=== PATIENT | male | born 1955 | race Caucasian/White ===

== ENCOUNTER 2017-11-11 23:11 | Emergency (ER) | payer BC ==
[2017-11-12] MEDS ORDERED: HYDROCODONE/APAP 5/325 MG TAB ONE (00:59)
[2017-11-12] MEDS ORDERED: FENTANYL CITR 100 MCG/2 ML ONE (01:05)
[2017-11-12 01:14] LABS: Absolute Lymphocytes (CBC) 0.6 K/uL (0.7-4.9); Absolute Monocytes 0.8 K/uL (0.1-1.3); Basophils % 0.4 % (0-1.3); Eosinophils % 4.7 % (0-4.4); Hematocrit 30.2 % (39.6-49.0); Lymphocytes % 13.3 % (15.3-44.8); MCH 32.8 pg (27.0-35.0); MCV 95.3 fL (80-100); MPV 9.6 fL (7.6-11.3); Monocytes % 16.8 % (3.3-12.3); Protime INR 1.07; RBC Red Blood Cell Count 3.17 M/uL (4.33-5.43)
[2017-11-12 01:25] LABS: Albumin 3.1 g/dL (3.4-5.0); Bilirubin Direct 0.6 mg/dL (0-0.2); Bilirubin Total 1.7 mg/dL (0.2-1.0); Magnesium 1.8 mg/dL (1.8-2.4); Potassium 3.9 mmol/L (3.5-5.1); Protein, Total 6.6 g/dL (6.4-8.2)
--- NOTE | 2017-11-12 02:39 | EDPHYS ---
Physician Documentation [facility] Name: Felipe Lorenzo Age: 62 yrs Sex: Male : 1955 Arrival Date: 11/11/2017 Time: 23:15 Bed 19 Private MD: Bismark Joyce T ED Physician Santos Ponce HPI: 11/12 22:02 This 62 yrs old Male presents to ER via Wheelchair with complaints of wa Possible Blood Clot. 22:02 The patient presents with swelling, tenderness, c/o R ankle swelling. s/p R knee wa replacement on 11/05. on lovenox. h/o DVT. states R leg hurts but want to make sure no DVT due to ankle swelling. The complaints affect the right ankle and right leg. Context: as noted above. Onset: The symptoms/episode began/occurred 3 day(s) ago. Modifying factors: The symptoms are alleviated by nothing. the symptoms are aggravated by movement, weight bearing, bending knee. Associated signs and symptoms: Pertinent positives: calf tenderness, swelling, of the left leg. Treatment prior to arrival includes: no previous treatment. Severity of symptoms: At their worst the symptoms were moderate, in the emergency department the symptoms are unchanged. The patient has experienced a previous episode. The patient has been recently seen by a physician: recent knee replacement by Weston Taylor. Historical: - Allergies: 11/11 23:39 Cipro; bb - Home Meds: 23:39 Lovenox Sub-Q every 12 hours [Active]; omeprazole 40 mg Oral cpDR 1 cap once daily bb [Active]; carvedilol 12.5 mg oral tab 1 tab 2 times per day [Active]; hydrocodone-acetaminophen 10-325 mg Oral tab 1 tab every 4 hours [Active]; meloxicam 15 mg oral tab 1 tab once daily [Active]; amlodipine 5 mg tab 1 tab once daily [Active]; ramipril 10 mg Oral cap 1 cap once daily [Active]; atorvastatin 40 mg oral tab 1 tab once daily [Active]; hydrochlorothiazide 12.5 mg Oral cap 1 cap once daily [Active]; CoQ-10 oral 120 mg daily oral [Active]; - PMHx: 23:39 Hypertension; Hyperlipidemia; GERD; bb - PSHx: 23:39 CABG; Carotid surgery; Knee surgery; Tonsillectomy; Left hand surgery; bb - Immunization history:: Adult Immunizations not up to date. - Social history:: Smoking status: Patient/guardian denies using tobacco, Patient uses alcohol, occasionally. Patient/guardian denies using street drugs. - Ebola Screening: : No symptoms or risks identified at this time. - Family history:: not pertinent. - Hospitalizations: : No recent hospitalization is reported. ROS: 11/12 22:07 Constitutional: Negative for fever, chills, and weight loss, Eyes: Negative for injury, wa pain, redness, and discharge, ENT: Negative for injury, pain, and discharge, Neck: Negative for injury, pain, and swelling, Cardiovascular: Negative for chest pain, palpitations, and edema, Respiratory: Negative for shortness of breath, cough, wheezing, and pleuritic chest pain, Abdomen/GI: Negative for abdominal pain, nausea, vomiting, diarrhea, and constipation, Back: Negative for injury and pain, : Negative for injury, bleeding, discharge, and swelling, Skin: Negative for injury, rash, and discoloration, Neuro: Negative for headache, weakness, numbness, tingling, and seizure. MS/extremity: Positive for pain, swelling, tenderness, of the right leg. All other systems are negative. Exam: 22:08 Constitutional: This is a well developed, well nourished patient who is awake, alert, wa and in no acute distress. Head/Face: Normocephalic, atraumatic. Eyes: Pupils equal round and reactive to light, extra-ocular motions intact. Lids and lashes normal. Conjunctiva and sclera are non-icteric and not injected. Cornea within normal limits. Periorbital areas with no swelling, redness, or edema. ENT: Nares patent. No nasal discharge, no septal abnormalities noted. Tympanic membranes are normal and external auditory canals are clear. Oropharynx with no redness, swelling, or masses, exudates, or evidence of obstruction, uvula midline. Mucous membranes moist. Neck: Trachea midline, no thyromegaly or masses palpated, and no cervical lymphadenopathy. Supple, full range of motion without nuchal rigidity, or vertebral point tenderness. No Meningismus. Chest/axilla: Normal chest wall appearance and motion. Nontender with no deformity. No lesions are appreciated. Cardiovascular: Regular rate and rhythm with a normal S1 and S2. No gallops, murmurs, or rubs. Normal PMI, no JVD. No pulse deficits. Respiratory: Lungs have equal breath sounds bilaterally, clear to auscultation and percussion. No rales, rhonchi or wheezes noted. No increased work of breathing, no retractions or nasal flaring. Abdomen/GI: Soft, non-tender, with normal bowel sounds. No distension or tympany. No guarding or rebound. No evidence of tenderness throughout. Back: No spinal tenderness. No costovertebral tenderness. Full range of motion. Neuro: Awake and alert, GCS 15, oriented to person, place, time, and situation. Cranial nerves II-XII grossly intact. Motor strength 5/5 in all extremities. Sensory grossly intact. Cerebellar exam normal. Normal gait. Psych: Awake, alert, with orientation to person, place and time. Behavior, mood, and affect are within normal limits. 22:08 Skin: R leg noted with diffuse redness and some areas of ecchymosis. 1+ pitting noted at the swollen ankles. diffusely tender, entire R leg. noted post-surgical dressing at the anterior aspect of R knee. DP pulses intact and strong however. Vital Signs: 11/11 23:39 BP 140 / 79; Pulse 75; Resp 16 S; Temp 98.5(O); Pulse Ox 97% on R/A; Weight 124.74 kg bb (R); Height 6 ft. 0 in. (182.88 cm) (R); Pain 8/10; 11/12 00:19 BP 126 / 79; Pulse 80; Resp 18; Pulse Ox 98% on R/A; ea 00:50 BP 121 / 76; Pulse 72; Resp 18; Pulse Ox 96% on R/A; Pain 8/10; aa1 01:15 BP 140 / 77; Pulse 72; Resp 18; Pulse Ox 96% on R/A; aa1 02:24 BP 112 / 58; Pulse 71; Resp 18; Pulse Ox 96% on R/A; aa1 03:06 BP 130 / 68; Pulse 70; Resp 18; Temp 97.8(O); Pulse Ox 98% on R/A; ea 11/11 23:39 Body Mass Index 37.30 (124.74 kg, 182.88 cm) bb MDM: 11/11 23:48 Patient medically screened. wa 11/12 22:10 Differential diagnosis: diffuse bruising possibly post-surgical. will r/o new DVT. pt wa on lovenox already. Data reviewed: vital signs, nurses notes. 22:10 Test interpretation: by ED physician or midlevel provider: labs within nml limits. R doppler: old DVT noted. possible new clot in the distal tibial. will continue blood thinners. close f/u with his doctor. Response to treatment: the patient's symptoms have mildly improved after treatment. 11/12 00:28 Order name: LFT's; Complete Time: 02: me 11/12 00:28 Order name: Basic Metabolic Panel; Complete Time: :11/12 00:28 Order name: CBC with Diff me 11/12 00:28 Order name: Magnesium; Complete Time: : me 11/12 00:28 Order name: PT-INR; Complete Time: : me 11/12 01:23 Order name: Manual Differential [facility] 11/12 00:29 Order name: Extremity Venous Uni Ltd [facility] Administered Medications: 00:58 Drug: [place] 5 mg-325 mg 1 tabs Route: PO; ea 02:00 Follow up: Response: No adverse reaction; Pain is decreased ea 01:04 Drug: fentaNYL (PF) 100 mcg Route: IVP; Site: left antecubital; ea 01:30 Follow up: Response: No adverse reaction; Pain is decreased ea Disposition: 11/12/17 02:38 Discharged to Home. Impression: Right Leg Pain post surgery, Right Leg swelling, Acute embolism and thrombosis of deep veins of lower extremity. - Condition is Stable. - Discharge Instructions: Deep Vein Thrombosis. - Medication Reconciliation Form, Thank You Letter, Antibiotic Education, Prescription Opioid Use form. - Follow up: Larry Ontiveros MD; When: Tomorrow; Reason: Recheck today's complaints. - Problem is new. - Symptoms have improved. - Notes: continue your blood thinners. follow up with your doctor for further evaluation tomorrow per your appointment. you may elevate the leg to attempt to reduce some of the ankle swelling Signatures: Dispatcher [employer] EDKendra Damon RN RN bb Antunez, Elena, RN RN ea Appiah, William, MD MD me Corrections: (The following items were deleted from the chart) 03:07 02:38 11/12/2017 02:38 Discharged to Home. Impression: Right Leg Pain post surgery; ea Right Leg swelling; Acute embolism and thrombosis of deep veins of lower extremity. Condition is Stable. Forms are Medication Reconciliation Form, Thank You Letter, Antibiotic Education, Prescription Opioid Use. Follow up: Larry Ontiveros; When: Tomorrow; Reason: Recheck today's complaints. Problem is new. Symptoms have improved. wa
--- NOTE | 2017-11-12 02:39 | ER ---
Nurse's Notes [facility] Name: Felipe Lorenzo Age: 62 yrs Sex: Male : 1955 Arrival Date: 11/11/2017 Time: 23:15 Bed 19 Private MD: Bismark Joyce T Diagnosis: Right Leg Pain post surgery;Right Leg swelling;Acute embolism and thrombosis of deep veins of lower extremity Presentation: 11/11 23:34 Presenting complaint: Patient states: he had right knee replacement on 11/05 and was bb doing well until today when his right ankle started hurting it is very painful and he is now having difficulty putting weight on it and it is swollen. Transition of care: patient was not received from another setting of care. Onset of symptoms was November 11, 2017. Risk Assessment: Do you want to hurt yourself or someone else? Patient reports no desire to harm self or others. Initial Sepsis Screen: Does the patient meet any 2 criteria? No. Patient's initial sepsis screen is negative. Does the patient have a suspected source of infection? No. Patient's initial sepsis screen is negative. Care prior to arrival: None. 23:34 Method Of Arrival: Wheelchair bb 23:34 Acuity: TED 2 bb Historical: - Allergies: 23:39 Cipro; bb - Home Meds: 23:39 Lovenox Sub-Q every 12 hours [Active]; omeprazole 40 mg Oral cpDR 1 cap once daily bb [Active]; carvedilol 12.5 mg oral tab 1 tab 2 times per day [Active]; hydrocodone-acetaminophen 10-325 mg Oral tab 1 tab every 4 hours [Active]; meloxicam 15 mg oral tab 1 tab once daily [Active]; amlodipine 5 mg tab 1 tab once daily [Active]; ramipril 10 mg Oral cap 1 cap once daily [Active]; atorvastatin 40 mg oral tab 1 tab once daily [Active]; hydrochlorothiazide 12.5 mg Oral cap 1 cap once daily [Active]; CoQ-10 oral 120 mg daily oral [Active]; - PMHx: 23:39 Hypertension; Hyperlipidemia; GERD; bb - PSHx: 23:39 CABG; Carotid surgery; Knee surgery; Tonsillectomy; Left hand surgery; bb - Immunization history:: Adult Immunizations not up to date. - Social history:: Smoking status: Patient/guardian denies using tobacco, Patient uses alcohol, occasionally. Patient/guardian denies using street drugs. - Ebola Screening: : No symptoms or risks identified at this time. - Family history:: not pertinent. - Hospitalizations: : No recent hospitalization is reported. Screenin/31 00:18 Abuse screen: Denies threats or abuse. Nutritional screening: No deficits noted. ea Tuberculosis screening: No symptoms or risk factors identified. Fall Risk None identified. Assessment: 00:16 General: Appears in no apparent distress. Behavior is calm, cooperative, appropriate ea for age. Pain: Complains of pain in right leg Pain radiates to right leg Pain currently is 8 out of 10 on a pain scale. Quality of pain is described as aching, Is intermittent. Pain:. Neuro: Level of Consciousness is awake, alert, obeys commands, Oriented to person, place, time, situation. Cardiovascular: Patient's skin is warm and dry. Respiratory: Airway is patent Respiratory effort is even, unlabored, Respiratory pattern is regular, symmetrical. GI: No signs and/or symptoms were reported involving the gastrointestinal system. : No signs and/or symptoms were reported regarding the genitourinary system. EENT: No signs and/or symptoms were reported regarding the EENT system. Derm: Skin is pink, warm \T\ dry. swelling noted to right lower extremity, surgical incision to right knee. Dressing dry and intact. 01:16 Reassessment: Patient and/or family updated on plan of care and expected duration. Pain ea level reassessed. Patient is alert, oriented x 3, equal unlabored respirations, skin warm/dry/pink. fire control technician b at bedside. 01:50 Reassessment: Patient and/or family updated on plan of care and expected duration. Pain ea level reassessed. Patient is alert, oriented x 3, equal unlabored respirations, skin warm/dry/pink. Family at bedside. 02:18 Reassessment: Patient and/or family updated on plan of care and expected duration. Pain ea level reassessed. Patient is alert, oriented x 3, equal unlabored respirations, skin warm/dry/pink. pt reports pain has decreased Patient states feeling better. 03:04 Reassessment: Patient and/or family updated on plan of care and expected duration. Pain ea level reassessed. Patient is alert, oriented x 3, equal unlabored respirations, skin warm/dry/pink. Discharge instruction given to patient, verbalized the understanding of instruction. Vital Signs: 11/11 23:39 BP 140 / 79; Pulse 75; Resp 16 S; Temp 98.5(O); Pulse Ox 97% on R/A; Weight 124.74 kg bb (R); Height 6 ft. 0 in. (182.88 cm) (R); Pain 8/10; 11/12 00:19 BP 126 / 79; Pulse 80; Resp 18; Pulse Ox 98% on R/A; ea 00:50 BP 121 / 76; Pulse 72; Resp 18; Pulse Ox 96% on R/A; Pain 8/10; aa1 01:15 BP 140 / 77; Pulse 72; Resp 18; Pulse Ox 96% on R/A; aa1 02:24 BP 112 / 58; Pulse 71; Resp 18; Pulse Ox 96% on R/A; aa1 03:06 BP 130 / 68; Pulse 70; Resp 18; Temp 97.8(O); Pulse Ox 98% on R/A; ea 11/11 23:39 Body Mass Index 37.30 (124.74 kg, 182.88 cm) ED Course: 11/11 23:15 Patient arrived in ED. ds1 23:15 Bismark Joyce MD is Private Physician. ds1 23:35 Triage completed. bb 23:39 Arm band placed on Patient placed in an exam room, on a stretcher, on pulse oximetry. bb Family accompanied patient. 23:48 Santos Ponce MD is Attending Physician. wa 11/12 00:16 Jordana Sheikh, RN is Primary Nurse. ea 00:18 Patient has correct armband on for positive identification. Bed in low position. Call ea light in reach. Side rails up X 1. 00:40 Initial lab(s) drawn, by me, sent to lab. Inserted saline lock: 20 gauge in left aa1 antecubital area, using aseptic technique. Blood collected. 00:51 Pillow given. Elevated right left leg. aa1 01:19 Extremity Venous Uni Ltd US In Process Unspecified. EDMS 02:36 Larry Ontiveros MD is Referral Physician. wa 03:05 No provider procedures requiring assistance completed. IV discontinued, intact, ea bleeding controlled, No redness/swelling at site. Pressure dressing applied. Administered Medications: 00:58 Drug: [place] 5 mg-325 mg 1 tabs Route: PO; ea 02:00 Follow up: Response: No adverse reaction; Pain is decreased ea 01:04 Drug: fentaNYL (PF) 100 mcg Route: IVP; Site: left antecubital; ea 01:30 Follow up: Response: No adverse reaction; Pain is decreased junior Outcome: 02:38 Discharge ordered by . spenser 03:05 Discharged to home ambulatory, with family. junior 03:05 Condition: improved 03:05 Discharge instructions given to patient, family, Instructed on discharge instructions, follow up and referral plans. Demonstrated understanding of instructions, follow-up care. 03:07 Patient left the ED. ea Signatures: Dispatcher [employer] EDVeronika Dior RN RN aa1 Poonam Polanco ds1 Kendra Nix RN RN bb Antunez, Elena, RN RN ea Appiah, William, MD MD wa Corrections: (The following items were deleted from the chart) 02:18 00:16 Derm: Skin is pink, warm \T\ dry. junior pacheco
[2017-11-12 03:10] LABS: Blood Morphology Comment NOT SEEN (NOT SEEN); Platelet Estimate ADEQ
--- NOTE | 2017-11-12 08:32 | RAD REPORT ---
EXAM DESCRIPTION: VAS - Extremity Venous Uni Ltd - 11/12/2017 1:23 am CLINICAL HISTORY: PAIN Leg swelling and edema. COMPARISON: Extremity Venous Uni Ltd dated 01/14/2017 FINDINGS: Right lower extremity venous system was interrogated with Doppler technique. Acute DVT fin dings are suspected distal femoral vein. Linear chronic DVT findings suspect in the popliteal vein. IMPRESSION: Acute DVT likely present distal right femoral vein. This finding appears superimposed on chronic DVT
== END 2017-11-12 03:07 | disposition home or self-care (01) ==
LOC: ER 23:11
DX: I82.4Z1 Acute embolism and thrombosis of unspecified deep veins of right distal lower extremity (principal); M79.89 Other specified soft tissue disorders; I10 Essential (primary) hypertension; E78.5 Hyperlipidemia, unspecified; Z95.1 Presence of aortocoronary bypass graft; Z88.1 Allergy status to other antibiotic agents
CPT/HCPCS: 36415; 80048; 80076; 83735; 85025; 85610; 93971; 96374; 99284; J3010

== ENCOUNTER 2017-11-29 11:08 | Emergency (ER) | payer BC ==
[2017-11-29] MEDS ORDERED: ONDANSETRON 4 MG/2 ML VIAL ONE (11:44)
[2017-11-29] MEDS ORDERED: MORPHINE 4 MG/ML SYR ONE (11:44)
[2017-11-29 12:07] LABS: Protime INR 1.44
[2017-11-29 12:19] LABS: Absolute Lymphocytes (CBC) 0.9 K/uL (0.7-4.9); Absolute Monocytes 0.9 K/uL (0.1-1.3); Absolute Neutrophil 3.6 K/uL (1.8-8.0); Basophils % 0.8 % (0-1.3); Bilirubin Direct 0.4 mg/dL (0-0.2); Bilirubin Total 1.4 mg/dL (0.2-1.0); Eosinophils % 2.6 % (0-4.4); Hematocrit 38.8 % (39.6-49.0); Lymphocytes % 16.1 % (15.3-44.8); MCH 31.6 pg (27.0-35.0); MCV 93.8 fL (80-100); Monocytes % 15.6 % (3.3-12.3); Protein, Total 8.3 g/dL (6.4-8.2); RBC Red Blood Cell Count 4.13 M/uL (4.33-5.43)
[2017-11-29 12:19] LABS: Urine Blood TRACE (NEG); Urine Glucose NEGATIVE (NEG); Urine Protein NEGATIVE (NEG)
--- NOTE | 2017-11-29 12:43 | RAD REPORT ---
EXAM DESCRIPTION: VAS - Extremity Venous Uni Ltd - 11/29/2017 12:00 pm CLINICAL HISTORY: swelling, pain Leg swelling and edema. COMPARISON: Extremity Venous Uni Ltd dated 11/12/2017 FINDINGS: Right lower extremity venous system was interrogated with Doppler technique. Partially rec annulized DVT is seen in the distal right femoral vein and right popliteal vein. No new or progressiv e DVT is seen. IMPRESSION: Partially recannulized DVT is seen in the right femoral vein and right popliteal vein. N o new or progressive DVT is present.
[2017-11-29] MEDS ORDERED: FENTANYL CITR 100 MCG/2 ML ONE (12:44)
--- NOTE | 2017-11-29 12:47 | RAD REPORT ---
EXAM DESCRIPTION: VAS - Lower Extremity Artery Uni Ltd - 11/29/2017 12:03 pm CLINICAL HISTORY: PAIN COMPARISON: None FINDINGS: Grayscale, color and spectral Doppler was performed of the right lower extremity arterial system. A biphasic and monophasic waveforms are seen throughout the right lower extremity arterial system. Pe ak systolic velocity measurements are within normal limits. No stenosis or occlusion is identified. IMPRESSION: A diffuse pattern of biphasic to monophasic waveforms throughout the right lower extremi ty arterial system without high-grade stenosis or occlusion visualized. The findings may indicate the presence of inflow stenosis.
--- NOTE | 2017-11-29 12:52 | RAD REPORT ---
EXAM DESCRIPTION: RAD - Knee Right 3 View - 11/29/2017 12:23 pm CLINICAL HISTORY: PAIN COMPARISON: Knee Right 3 View dated 01/14/2017 FINDINGS: Soft tissue swelling is seen about the knee. A small suprapatellar joint effusion is prese nt. Total knee arthroplasty changes are present. No hardware loosening is seen. Vascular calcificatio ns are noted. IMPRESSION: Prominent soft tissue swelling about the knee.
--- NOTE | 2017-11-29 15:42 | EDPHYS ---
Physician Documentation [facility] Name: Felipe Lorenzo Age: 62 yrs Sex: Male : 1955 Arrival Date: 11/29/2017 Time: 11:10 Bed 18 Private MD: Bismark Joyce T ED Physician Ceasar Lewis HPI: 11/29 11:34 This 62 yrs old Male presents to ER via Wheelchair with complaints of Blood jmm Clot. 11:34 The patient presents with pain, that is acute, swelling. The complaints affect the jmm medial aspect of right thigh, medial aspect of right knee, medial aspect of right calf, right ankle, medial aspect of right foot, right quadriceps, right knee, right beltran, anterior aspect of right ankle and dorsum of right foot. Onset: The symptoms/episode began/occurred gradually. This is a 62 year old male with a history of HLP, HTN that presents to the ED with right lower extremity pain worsening over the past 2 days. Patient states swelling has decreased since he began taking eliquis. Patient denies chest pain or shortness of breath. Patient is s/p knee replacement performed by Dr. Lamb on November 052017. Patient states he developed a DVT which is currently taking eliquis. Patient also states he has a subjective fever with chills at night which he states is "knocked down" with his tylenol. . Historical: - Allergies: 11:15 Cipro; la1 - PMHx: 11:15 GERD; Hyperlipidemia; Hypertension; la1 - Immunization history:: Adult Immunizations up to date. - Social history:: Smoking status: Patient/guardian denies using tobacco, the patient reports quitting approximately 7 years ago. - Ebola Screening: : No symptoms or risks identified at this time. ROS: 11:34 Cardiovascular: Negative for chest pain, palpitations, and edema, Respiratory: Negative jmm for shortness of breath, cough, wheezing, and pleuritic chest pain. 11:34 Constitutional: Positive for chills. 11:34 Cardiovascular: Negative for chest pain. 11:34 Respiratory: Negative for shortness of breath. 11:34 MS/extremity: Positive for pain. 11:34 All other systems are negative. Exam: 11:34 Constitutional: This is a well developed, well nourished patient who is awake, alert, jmm and in no acute distress. Head/Face: atraumatic. Chest/axilla: Normal chest wall appearance and motion. Cardiovascular: Regular rate and rhythm. No edema appreciated Respiratory: Normal respirations, no respiratory distress appreciated 11:34 Cardiovascular: Rate: normal, Rhythm: regular. 11:34 Respiratory: the patient does not display signs of respiratory distress, Respirations: normal. 11:34 Musculoskeletal/extremity: mild swelling noted to the right lower leg, FROM is appreciated to the right knee, compartments are soft, NVI. 11:34 Skin: mild erythema noted to the right lower leg. 11:34 Neuro: Orientation: is normal, Mentation: is normal, Memory: is normal. 11:34 Psych: Behavior/mood is pleasant, cooperative. Vital Signs: 11:15 BP 156 / 85; Pulse 85; Resp 16; Temp 97.6; Pulse Ox 97% on R/A; Weight 129.27 kg; la1 Height 6 ft. 1 in. (185.42 cm); 12:30 BP 138 / 71; Pulse 81; Resp 18; Pulse Ox 98% on R/A; Pain 9/10; em 13:25 BP 129 / 82; Pulse 79; Resp 17; Pulse Ox 96% on R/A; mh5 14:38 BP 132 / 85; Pulse 76; Resp 18; Pulse Ox 100% on R/A; em 15:30 BP 122 / 67; Pulse 80; Resp 16; Pulse Ox 98% on R/A; Pain 6/10; em 16:22 BP 126 / 68; Pulse 77; Resp 14; Pulse Ox 99% on R/A; em 11:15 Body Mass Index 37.60 (129.27 kg, 185.42 cm) la1 MDM: 11:28 Patient medically screened. [facility] 15:33 Data reviewed: vital signs, nurses notes, lab test result(s), radiologic studies, [facility] ultrasound. Counseling: I had a detailed discussion with the patient and/or guardian regarding: the historical points, exam findings, and any diagnostic results supporting the discharge/admit diagnosis, the need for outpatient follow up, to return to the emergency department if symptoms worsen or persist or if there are any questions or concerns that arise at home. 11/29 11:31 Order name: CBC with Diff [facility] 11/29 11:31 Order name: BMP; Complete Time: 12:52 [facility] 11/29 11:31 Order name: Hepatic Function; Complete Time: 12:52 [facility] 11/29 11:31 Order name: Procalcitonin; Complete Time: 12:52 [facility] 11/29 11:31 Order name: Blood Culture Adult (2) [facility] 11/29 11:32 Order name: Urine Dipstick--Ancillary (enter results); Complete Time: 12:52 ag 11/29 11:31 Order name: Extremity Venous Unilateral Ltd; Complete Time: 12:52 [facility] 11/29 11:32 Order name: Knee Right 3 View XRAY; Complete Time: 12:52 [facility] 11/29 11:40 Order name: PT-INR; Complete Time: 12:16 [facility] 11/29 11:43 Order name: LE Artery Uni Ltd; Complete Time: 12:52 [facility] 11/29 12:26 Order name: CBC Smear Scan [facility] 11/29 11:31 Order name: Saline Lock; Complete Time: 11:37 jm Administered Medications: 11:44 Drug: morphine 4 mg Route: IVP; Site: left antecubital; iw 12:30 Follow up: Response: No adverse reaction; Pain is unchanged, physician notified em 11:44 Drug: Zofran 4 mg Route: IVP; Site: left antecubital; iw 12:30 Follow up: Response: No adverse reaction em 12:50 Drug: fentaNYL (PF) 50 mcg Route: IVP; Site: left antecubital; iw 13:40 Follow up: Response: No adverse reaction; Pain is decreased em 15:23 Drug: fentaNYL (PF) 50 mcg Route: IVP; Site: left antecubital; em 16:23 Follow up: Response: No adverse reaction; Pain is decreased em Disposition: 11/30 16:10 Co-signature as Attending Physician, Ceasar Lewis MD. Disposition: 11/29/17 15:41 Discharged to Home. Impression: Pain in right knee, DVT. - Condition is Stable. - Discharge Instructions: Deep Vein Thrombosis, Knee Pain. - Prescriptions for Ultracet 37.5- 325 mg Oral Tablet - take 2 tablet by ORAL route every 6 hours - for up to 5 days; do not exceed 8 tablets per day.; 20 tablet. - Medication Reconciliation Form, Thank You Letter, Antibiotic Education, Prescription Opioid Use form. - Follow up: Kevan Maxwell MD; When: 2 - 3 days; Reason: Recheck today's complaints, Continuance of care, Re-evaluation by your physician. Signatures: Dispatcher [employer] [facility] Ceasar Richardson PA PA Allen Boswell, RECORDS CUSTODIAN RECORDS CUSTODIAN em Ana Reynaga, RN RN iw Justice Goldberg RN RN la1 Ceasar Lewis MD MD gs Corrections: (The following items were deleted from the chart) 11/29 12:03 11:32 Knee Left 3 View+RAD.RAD.BRZ ordered. [facility] 16:24 15:41 11/29/2017 15:41 Discharged to Home. Impression: Pain in right knee; DVT. em Condition is Stable. Forms are Medication Reconciliation Form, Thank You Letter, Antibiotic Education, Prescription Opioid Use. Follow up: Kevan Maxwell; When: 2 - 3 days; Reason: Recheck today's complaints, Continuance of care, Re-evaluation by your physician. dex
--- NOTE | 2017-11-29 15:42 | ER ---
Nurse's Notes [facility] Name: Felipe Lorenzo Age: 62 yrs Sex: Male : 1955 Arrival Date: 11/29/2017 Time: 11:10 Bed 18 Private MD: Bismark Joyce T Diagnosis: Pain in right knee;DVT Presentation: 11/29 11:14 Presenting complaint: Patient states: I had a right knee replacement on the last month with Dr Lamb and then got a DVT from my right ankle to knee, I have been on elequis for 2-3 weeks but the pain is just getting worse. Pt denies CP or SOB, pain in right lower leg. Transition of care: patient was not received from another setting of care. Onset of symptoms was November 29, 2017. Risk Assessment: Do you want to hurt yourself or someone else? Patient reports no desire to harm self or others. Initial Sepsis Screen: Does the patient meet any 2 criteria? No. Patient's initial sepsis screen is negative. Does the patient have a suspected source of infection? No. Patient's initial sepsis screen is negative. Care prior to arrival: None. 11:14 Method Of Arrival: Wheelchair la1 11:14 Acuity: TED 3 la1 Historical: - Allergies: 11:15 Cipro; la1 - PMHx: 11:15 GERD; Hyperlipidemia; Hypertension; la1 - Immunization history:: Adult Immunizations up to date. - Social history:: Smoking status: Patient/guardian denies using tobacco, the patient reports quitting approximately 7 years ago. - Ebola Screening: : No symptoms or risks identified at this time. Screenin:55 Abuse screen: Denies threats or abuse. Nutritional screening: No deficits noted. em Tuberculosis screening: No symptoms or risk factors identified. Fall Risk None identified. Assessment: 11:30 General: Appears uncomfortable, Behavior is calm, cooperative. Pain: Complains of pain em in right knee and right beltran Pain currently is 10 out of 10 on a pain scale. Pain began /about one week after surgery which was on 11/05/17. Neuro: Level of Consciousness is awake, alert, obeys commands, Oriented to person, place, time, situation. Cardiovascular: Capillary refill < 3 seconds Patient's skin is warm and dry. Edema is 1+ to right ankle and right foot. Respiratory: Airway is patent Respiratory effort is even, unlabored, Respiratory pattern is regular, symmetrical. GI: Abdomen is round non-distended. : No signs and/or symptoms were reported regarding the genitourinary system. EENT: No signs and/or symptoms were reported regarding the EENT system. Derm: Skin is intact, Skin is pink, warm \T\ dry. Musculoskeletal: Range of motion: limited in right knee Swelling present in right leg. 11:40 Reassessment: Patient appears in no apparent distress at this time. I agree with above iw assessment by Allen Bailey LVN. 11:50 Reassessment: Patient appears in no apparent distress at this time. pt wheeled to em ultrasound via wheelchair. 12:30 Reassessment: Patient appears in no apparent distress at this time. Patient and/or em family updated on plan of care and expected duration. Pain level reassessed. Patient is alert, oriented x 3, equal unlabored respirations, skin warm/dry/pink. reports pain is 9/10, SILVANA Mcdonough notified, new medication orders received. 13:34 Reassessment: Patient appears in no apparent distress at this time. Patient and/or em family updated on plan of care and expected duration. Pain level reassessed. Patient is alert, oriented x 3, equal unlabored respirations, skin warm/dry/pink. Patient states feeling better. 14:30 Reassessment: Patient appears in no apparent distress at this time. Patient and/or em family updated on plan of care and expected duration. Pain level reassessed. Patient is alert, oriented x 3, equal unlabored respirations, skin warm/dry/pink. waiting for Dr. Lamb to return providers call. 15:30 Reassessment: Patient appears in no apparent distress at this time. Patient and/or em family updated on plan of care and expected duration. Pain level reassessed. Patient is alert, oriented x 3, equal unlabored respirations, skin warm/dry/pink. Patient states feeling better. Vital Signs: 11:15 BP 156 / 85; Pulse 85; Resp 16; Temp 97.6; Pulse Ox 97% on R/A; Weight 129.27 kg; la1 Height 6 ft. 1 in. (185.42 cm); 12:30 BP 138 / 71; Pulse 81; Resp 18; Pulse Ox 98% on R/A; Pain 9/10; em 13:25 BP 129 / 82; Pulse 79; Resp 17; Pulse Ox 96% on R/A; mh5 14:38 BP 132 / 85; Pulse 76; Resp 18; Pulse Ox 100% on R/A; em 15:30 BP 122 / 67; Pulse 80; Resp 16; Pulse Ox 98% on R/A; Pain 6/10; em 16:22 BP 126 / 68; Pulse 77; Resp 14; Pulse Ox 99% on R/A; em 11:15 Body Mass Index 37.60 (129.27 kg, 185.42 cm) la1 ED Course: 11:10 Patient arrived in ED. mr 11:11 Bismark Joyce MD is Private Physician. mr 11:15 Triage completed. la1 11:16 Arm band placed on right wrist. la1 11:17 Allen Bailey LVN is Primary Nurse. em 11:19 Ceasar Richardson PA is PHCP. jmm 11:19 Ceasar Lewis MD is Attending Physician. jmm 11:45 Inserted saline lock: 20 gauge in left antecubital area, using aseptic technique. Blood em collected. 11:45 Initial lab(s) drawn, by me, sent to lab. First set of blood cultures drawn by me. em 11:55 Patient taken to ultrasound. via wheelchair. aa4 11:55 Patient has correct armband on for positive identification. Placed in gown. Bed in low em position. Side rails up X2. 12:01 US Extremity Venous Unilateral Ltd In Process Unspecified. EDMS 12:01 US LE Artery Uni Ltd In Process Unspecified. EDMS 12:22 X-ray completed. Portable x-ray completed in exam room. Patient tolerated procedure ml well. 12:24 Knee Right 3 View XRAY In Process Unspecified. EDMS 12:31 Ultrasound completed. Patient tolerated well. Patient moved back from ultrasound. aa4 15:34 Kevan Maxwell MD is Referral Physician. jmm 16:21 No provider procedures requiring assistance completed. IV discontinued, intact, em bleeding controlled, No redness/swelling at site. Pressure dressing applied. Administered Medications: 11:44 Drug: morphine 4 mg Route: IVP; Site: left antecubital; iw 12:30 Follow up: Response: No adverse reaction; Pain is unchanged, physician notified em 11:44 Drug: Zofran 4 mg Route: IVP; Site: left antecubital; iw 12:30 Follow up: Response: No adverse reaction em 12:50 Drug: fentaNYL (PF) 50 mcg Route: IVP; Site: left antecubital; iw 13:40 Follow up: Response: No adverse reaction; Pain is decreased em 15:23 Drug: fentaNYL (PF) 50 mcg Route: IVP; Site: left antecubital; em 16:23 Follow up: Response: No adverse reaction; Pain is decreased em Outcome: 15:41 Discharge ordered by . dex 16:21 Discharged to home via wheelchair. em 16:21 Condition: good 16:21 Discharge instructions given to patient, Instructed on discharge instructions, follow up and referral plans. medication usage, Demonstrated understanding of instructions, follow-up care, medications, Prescriptions given X 1. 16:24 Patient left the ED. em Signatures: Dispatcher [employer] EDMS Ceasar Richardson PA PA jmm Rivera, Maria mr Bailey, Allen, WOOD STAINER WOOD STAINER em Ana Reynaga, RN Jaimee Barry Amanda 4 Justice Goldberg RN RN [facility]Marga [facility]
[2017-11-29 17:07] LABS: Blood Morphology Comment NOT SEEN (NOT SEEN); Platelet Estimate ADEQ; Urine White Blood Cell Casts OK
== END 2017-11-29 16:24 | disposition home or self-care (01) ==
LOC: ER 11:08
DX: I82.4Y1 Acute embolism and thrombosis of unspecified deep veins of right proximal lower extremity (principal); I10 Essential (primary) hypertension; Z88.1 Allergy status to other antibiotic agents
CPT/HCPCS: 36415; 80048; 80076; 81003; 84145; 85025; 85610; 87040; 93926; 93971; 96374; 96375; 99284; J2405; J3010